=== PATIENT | male | born 1975 | race Caucasian/White ===

== ENCOUNTER 2020-04-29 05:39 | Emergency (ER) | payer SELFPAY ==
[~2020-04-29] VITALS: Ht 165.1 cm; Wt 88.6 kg
[2020-04-29 05:51] VITALS: Ht 165.1 cm; Wt 88.6 kg
[2020-04-29 06:46] LABS: BASOPHIL % 0.9 % (0.2-1.5); PLATELET COUNT 211 x10^3mcL (152-348)
[2020-04-29] MEDS ORDERED: MOT600 PO (08:13)
[2020-04-29] MEDS ORDERED: TENORMIN25 MG PO (08:13)
[2020-04-29 08:18] LABS: CALCIUM 9.4 mg/dL (8.5-10.1); CARBON DIOXIDE 27.9 mmol/L (21-32); CHLORIDE SERUM 102 mmol/L (98-107); CREATININE SERUM 0.9 mg/dL (0.7-1.3); GFR1 > 60 mL/min; GLUCOSE SERUM 146 mg/dL (74-106); POTASSIUM SERUM 3.8 mmol/L (3.5-5.1); SODIUM SERUM 139 mmol/L (136-145)
[2020-04-29 08:21] LABS: microscopic required? NO
[2020-04-29 08:22] LABS: ALBUMIN 3.9 g/dL (3.4-5.0); ALKALINE PHOSPHATASE 73 U/L (46-116); ALT/SGPT 72 U/L (16-63); AST/SGOT 40 U/L (15-37); BILIRUBIN TOTAL 0.4 mg/dL (0.20-1.00); TOTAL PROTEIN, SERUM 7.8 g/dL (6.4-8.2)
[2020-04-29 08:29] LABS: UA SPECIFIC GRAVITY 1.025 (1.005-1.035); urine erythrocyte NEGATIVE (NEGATIVE)
[2020-04-29 08:44] VITALS: BP 144/94
[2020-04-29 10:09] LABS: AMPHETAMINE QUAL UR POSITIVE (See below)
== END 2020-04-29 08:44 | disposition home or self-care (01) ==
LOC: ED 05:39
PROVIDERS: Specialist
DX: S83.92XA Sprain of unspecified site of left knee, initial encounter (principal); I10 Essential (primary) hypertension; W18.40XA Slipping, tripping and stumbling without falling, unspecified, initial encounter; Y93.89 Activity, other specified; Y92.89 Other specified places as the place of occurrence of the external cause; Y99.8 Other external cause status
CPT/HCPCS: J3490